=== PATIENT | male | born 1970 | race Hispanic/Latino ===

== ENCOUNTER 2017-02-27 19:27 | Emergency (ER) | payer BC ==
[2017-02-27 19:33] VITALS: BMI 36.6
[2017-02-27 19:40] VITALS: TEMP 98.7
--- NOTE | 2017-02-27 21:13 | ED PDOC ---
Arrival/HPI - General Chief Complaint: Upper Extremity Problem/Injury Time Seen by Provider: 02/27/17 19:56 Historian: Patient - History of Present Illness Narrative History of Present Illness (Text): 02/28/17 00:59 46-year-old male presents with injury to the left arm, he is concerned that he may have a possible bicep muscle tear. Patient states that he was playing at a softball match, and as he went up to bat and to swing, he felt a sudden onset of a pop in tearing sensation to the distal medial aspect of his left arm. Reports no numbness, decrease in range of motion, shoulder pain, elbow pain, or any other injury. Patient reports no other complaints at this time. GENEVA Isidro Past Medical History - Provider Review Nursing Documentation Reviewed: Yes - Infectious Disease Hx of Infectious Diseases: None - Cardiac Hx Cardiac Disorders: No - Pulmonary Hx Respiratory Disorders: Yes Hx Asthma: Yes Hx Emphysema: Yes (hx of) - Neurological Hx Neurological Disorder: No - HEENT Hx HEENT Disorder: No - Renal Hx Renal Disorder: No - Endocrine/Metabolic Hx Endocrine Disorders: No - Hematological/Oncological Hx Blood Disorders: No - Integumentary Hx Dermatological Disorder: No - Musculoskeletal/Rheumatological Hx Musculoskeletal Disorders: No - Gastrointestinal Hx Gastrointestinal Disorders: No - Genitourinary/Gynecological Hx Genitourinary Disorders: No - Psychiatric Hx Psychophysiologic Disorder: No Hx Substance Use: No - Anesthesia Hx Anesthesia: No Family/Social History - Physician Review Nursing Documentation Reviewed: Yes Family/Social History: No Known Family HX Smoking Status: chew tobac Hx Alcohol Use: No Hx Substance Use: No Allergies/Home Meds Allergies/Adverse Reactions: Allergies No Known Allergies Allergy (Verified 02/27/17 19:49) Home Medications: Home Meds Medication Instructions Recorded Confirmed No Known Home Med 02/27/16 02/27/17 Review of Systems - Review of Systems Constitutional: Normal. absent: Fatigue, Weight Change, Fevers Respiratory: Normal. absent: SOB, Cough, Sputum Cardiovascular: Normal. absent: Chest Pain, Palpitations, Edema Musculoskeletal: Normal, Arthralgias. absent: Back Pain, Neck Pain Skin: Normal. absent: Rash, Pruritis, Skin Lesions Physical Exam Vital Signs Reviewed: Yes Vital Signs Temp Pulse Resp BP Pulse Ox 02/27/17 21:30 95 H 18 140/98 H 98 02/27/17 19:39 98.7 F 100 H 19 144/103 H 96 Temperature: Afebrile Blood Pressure: Hypertensive Pulse: Regular Respiratory Rate: Normal Appearance: Positive for: Well-Appearing, Non-Toxic, Comfortable Pain Distress: Mild Mental Status: Positive for: Alert and Oriented X 3 - Systems Exam Head: Present: Atraumatic, Normocephalic Neck: Present: Normal Range of Motion. No: MIDLINE TENDERNESS Back: Present: Normal Inspection. No: Midline Tenderness, Paraspinal Tenderness Upper Extremity: Present: Normal Inspection, Normal ROM, NORMAL PULSES, Neurovascularly Intact, Capillary Refill < 2s, Norm 2-Pt Discrimination, Other ( L arm : +mild edema to the distal medial aspect of the L arm with no deformity, no palpable depression). No: Edema, Tenderness, Swelling, Erythema, Deformity Lower Extremity: Present: Normal Inspection, NORMAL PULSES, Normal ROM, Neurovascularly Intact, Capillary Refill < 2 s. No: Edema, Tenderness, Swelling , Erythema, Deformity Neurological: Present: GCS=15, CN II-XII Intact, Speech Normal, Motor Func Grossly Intact, Normal Sensory Function Medical Decision Making ED Course and Treatment: 02/27/17 21:10 46-year-old male presents with injury to the left arm, with possible bicep muscle tear. Differential diagnosis : Biceps tendon rupture, muscle strain, contusion Arm sling applied by PA. Patient is refusing any analgesics at this time. Case discussed with Dr. Tahir Whitlock, is agreeable to ortho school occupational therapist Dr. Maharaj for ortho consult. Call placed to Dr. Maharaj and case discussed, he is requesting if it is possible to obtain an MRI at this time, however MRI closes after 7pm, was informed that CT is available, however he states that it is not diagnostic. He states that the patient can be discharged and he can follow up with the patient at his [place] office tomorrow. Patient notified of plan for outpatient follow-up with Dr. Maharaj tomorrow at his [place] office, which the patient is agreeable to. Patient advised to take [id number] NSAIDs as needed for pain, apply ice, and wear sling in the meantime. - PA / CERTIFIED ENDOSCOPY TECHNICIAN / Resident Statement MD/DO has reviewed & agrees with the documentation as recorded. Disposition/Present on Arrival - Present on Arrival Any Indicators Present on Arrival: No History of DVT/PE: No History of Uncontrolled Diabetes: No Urinary Catheter: No History of Decub. Ulcer: No History Surgical Site Infection Following: None - Disposition Have Diagnosis and Disposition been Completed?: Yes Diagnosis: Biceps tendon tear, Arm pain Disposition: HOME/ ROUTINE Disposition Time: 21:13 Patient Plan: Discharge Condition: STABLE Discharge Instructions (ExitCare): Tendon Rupture (ED) Print Language: [place] Additional Instructions: Thank you for letting us take care of you today. You were treated for left arm bicep tendon tear versus rupture. The emergency medical care you received today was directed at your acute symptoms. Take [id number] NSAIDs as needed for pain, apply ice and wear sling as needed. Return to the Emergency Department if your symptoms worsen, do not improve, or if you have any other problems. Please see Dr. Maharaj tomorrow at his [place] office without fail. Bring any paperwork you were given at discharge with you along with any medications you are taking to your follow up visit. Our treatment cannot replace ongoing medical care by a primary care provider (PCP) outside of the emergency department. Thank you for allowing the [facility] team to be part of your care today. Referrals: Jodie Isidro MD [Primary Care Provider] - Follow up with primary Chris Maharaj MD [Staff Provider] - Follow up with primary Forms: [employer] (Yoruba), WORK NOTE
[2017-02-27 21:30] VITALS: BP 140/98; PULSE 95; RESP 18; O2SAT 98
== END 2017-02-27 21:30 | disposition home or self-care (01) ==
LOC: ED 19:27
DX: S46.212A Strain of muscle, fascia and tendon of other parts of biceps, left arm, initial encounter (principal); X50.0XXA Overexertion from strenuous movement or load, initial encounter; Y93.64 Activity, baseball; Y92.39 Other specified sports and athletic area as the place of occurrence of the external cause